=== PATIENT | male | born 1965 | race American Indian/Alaskan Native ===

== ENCOUNTER 2022-04-14 11:45 | Inpatient (IN) | payer SELFPAY ==
--- NOTE | 2022-04-14 12:05 | Consultation ---
History of Present Illness - Reason for Consult Consult date: 04/14/22 - History of Present Illness [facility] Consult Note # Demographics Consult Type: Acute Stroke Level 1 (0-4.5 hrs) Patient Location: Emergency Room First Name: manuel Last Name: radha Date of : 08/31/1961 Age: 60 Gender: Male Facility: [facility] Time of Initial Page (): 04/14/2022, 11:44 Time of Return Call (): 04/14/2022, 11:44 # HPI History: was noted to be confused. Coworkers called EMS and he is not able to follow commands. he had episode of syncope. Last Known Normal: 945AM # Scores Time of exam and NIHSS (): 04/14/2022, 11:49 Level of Consciousness 1a: [0] = Alert; keenly responsive LOC Questions 1b: [2] = Answers neither correctly LOC Commands 1c: [0] = Performs both tasks correctly Best Gaze 2: [0] = Normal Visual 3: [0] = No visual loss Facial Palsy 4: [0] = Normal symmetrical movements Motor Arm Left 5a: [0] = No drift Motor Arm Right 5b: [0] = No drift Motor Leg Left 6a: [0] = No drift Motor Leg Right 6b: [0] = No drift Limb Ataxia 7: [0] = Absent Sensory 8: [0] = Normal Best Language 9: [0] = No aphasia Dysarthria 10: [0] = Normal Extinction and Inattention 11: [0] = No abnormality NIHSS Total: 2 # Exam Vitals: vital signs reviewed SBP: 210 DBP: 108 # H-FH-SH Past Medical History: hypertension # Data Glucose: [address] personally read by me ( Time): 04/14/2022, 12:[address]: no bleed preliminarily reviewed by me, please refer to radiology read for official reading # Assessment Impression: Altered Mental Status possibly related to HTN. Less likely stroke, as there is no facial droop, gaze preference or focal weakness. # Plan Thrombolytic/Intervention: NOT IV Thrombolysis or IA Intervention candidate Thrombolytic Exclusion: other (see below) likely not stroke Intraarterial Exclusion: clinically not consistent with stroke Target Blood Pressure: SBP < 160 SBP > 120 Labs: Ammonia B12 comprehensive metabolic panel ESR liver function tests TSH urine drug screen ua Imaging: (urgency: STAT): CT Angiogram Head and CT Angiogram Neck AND call back with results if abnormal Imaging: (urgency: routine): MRI Brain without contrast Other: If patient has any neurological deterioration please call me back immediately telemetry monitoring I have discussed my recommendations with the referring provider # Demographics First Name: manuel Last Name: radha Facility: [facility] Medications and Allergies Allergies Allergy/AdvReac Type Severity Reaction Status Date / Time No Known Allergies Allergy Verified 04/14/22 11:52 Exam - Constitutional Vitals: Temp Pulse Resp BP Pulse Ox 83 18 148/98 96 04/14/22 11:48 04/14/22 11:48 04/14/22 11:48 04/14/22 11:48
--- NOTE | 2022-04-14 12:16 | Emergency Department Report ---
ED Neuro Deficit HPI - General Chief Complaint: Neuro Symptoms/Deficit Stated Complaint: STROKE Time Seen by Provider: 04/14/22 11:54 Source: patient, EMS Mode of arrival: Stretcher Limitations: No Limitations - History of Present Illness Initial Comments: 56-year-old -[place] male with a history of hypertension this morning went to work, was noted to be altered and slightly confused. Subsequently patient became more more confused and had a syncopal event. Patient admits now that he has a headache. No report of any fever chills cough or chest pain -: Sudden Location: speech, dysarthria Presenting Symptoms: Present: Altered Mental Status Place: work Severity: moderate Quality: intermittant Improves With: none, time On Anticoagulants: No Context: sudden onset Associated Symptoms: confusion Treatments Prior to Arrival: none - Related Data Allergies/Adverse Reactions: Allergies Allergy/AdvReac Type Severity Reaction Status Date / Time No Known Allergies Allergy Verified 04/14/22 11:52 ED Review of Systems ROS: Stated complaint: STROKE Other details as noted in HPI Constitutional: no symptoms reported Eyes: as per HPI ENT: as per HPI Respiratory: see HPI Cardiovascular: as per HPI Endocrine: no symptoms reported Gastrointestinal: as per HPI Genitourinary: as per HPI Musculoskeletal: as per HPI Neurological: weakness, paresthesias, confusion Psychiatric: as per HPI Hematological/Lymphatic: as per HPI ED Past Medical Hx - Past Medical History Hx Hypertension: Yes - Social History Smoking Status: Former Smoker Substance Use Type: Alcohol ED Neuro Physical Exam - General Limitations: No Limitations General appearance: alert, in no apparent distress Suspected Stroke: Yes - Head Head exam: Present: atraumatic, normocephalic, normal inspection - Eye Eye exam: Present: normal appearance, PERRL, EOMI - ENT ENT exam: Present: normal exam, normal orophraynx - Neck Neck exam: Present: normal inspection - Respiratory Respiratory exam: Present: normal lung sounds bilaterally - Cardiovascular Cardiovascular Exam: Present: regular rate, normal rhythm, normal heart sounds - GI/Abdominal GI/Abdominal exam: Present: soft. Absent: distended, tenderness - Extremities Exam Extremities exam: Present: normal inspection, full ROM - Back Exam Back exam: Present: normal inspection, full ROM - Neurological Exam Neurological exam: Present: alert - NIHSS Assessment Interval: 2 hours post treatment 1a. Level of Consciousness: alert/keenly responsive 1b. LOC Questions: answers 1 question correctly 1c. LOC Commands: performs tasks correctly 2. Best Gaze: normal 3. Visual: no visual loss 4. Facial Palsy: minor paralysis 5b. Motor Arm Right: no drift 5a. Motor Arm Left: no drift 6a. Motor Leg Left: no drift 6b. Motor Leg Right: no drift 7. Limb Ataxia: absent 8. Sensory: normal 9. Best Language: mild/moderate aphasia 10. Dysarthria: mild/moderate dysarthria 11. Extinction/Inattention: no abnormality Total Score: 4 Stroke Severity: Minor Stroke - Psychiatric Psychiatric exam: Present: normal affect ED Course Vital Signs 04/14/22 04/14/22 04/14/22 11:48 11:52 12:19 Pulse Rate 83 Respiratory 18 11 L Rate Blood Pressure Blood Pressure 148/98 [Left] O2 Sat by Pulse 96 99 98 Oximetry 04/14/22 04/14/22 04/14/22 12:30 12:46 13:00 Pulse Rate 66 70 68 Respiratory 17 16 21 Rate Blood Pressure 154/95 154/95 154/95 Blood Pressure [Left] O2 Sat by Pulse 97 98 98 Oximetry 04/14/22 04/14/22 04/14/22 13:16 13:30 13:46 Pulse Rate 65 86 72 Respiratory 19 14 20 Rate Blood Pressure 154/95 154/95 175/106 Blood Pressure [Left] O2 Sat by Pulse 98 97 98 Oximetry 04/14/22 14:00 Pulse Rate 68 Respiratory 17 Rate Blood Pressure 175/106 Blood Pressure [Left] O2 Sat by Pulse 98 Oximetry - Lab Data Result diagrams: 04/14/22 12:22 04/14/22 12:22 Lab Results 04/14/22 04/14/22 04/14/22 Range/Units 12:22 12:22 12:22 WBC 4.8 (4.5-11.0) K/mm3 RBC 3.68 (3.65-5.03) M/mm3 Hgb 10.1 L (11.8-15.2) gm/dl Hct 29.6 L (35.5-45.6) % MCV 80 L (84-94) fl MCH 28 (28-32) pg MCHC 34 (32-34) % RDW 14.7 (13.2-15.2) % Plt Count 140 (140-440) K/mm3 Lymph % (Auto) 14.0 (13.4-35.0) % [place] % (Auto) 8.7 H (0.0-7.3) % Eos % (Auto) 0.7 (0.0-4.3) % Baso % (Auto) 1.0 (0.0-1.8) % Lymph # (Auto) 0.7 L (1.2-5.4) K/mm3 [place] # (Auto) 0.4 (0.0-0.8) K/mm3 Eos # (Auto) 0.0 (0.0-0.4) K/mm3 Baso # (Auto) 0.0 (0.0-0.1) K/mm3 Seg Neutrophils % 75.6 H (40.0-70.0) % Seg Neutrophils # 3.6 (1.8-7.7) K/mm3 Sodium 138 (137-145) mmol/L Potassium 3.4 L (3.6-5.0) mmol/L Chloride 102.1 (98-107) mmol/L Carbon Dioxide 23 (22-30) mmol/L Anion Gap 16 mmol/L BUN 36 H (9-20) mg/dL Creatinine 3.9 H (0.8-1.3) mg/dL Estimated GFR 19 ml/min BUN/Creatinine Ratio 9 % Glucose 99 (75-100) mg/dL Calcium 8.4 (8.4-10.2) mg/dL Total Bilirubin 0.50 (0.1-1.2) mg/dL AST 25 (5-40) units/L ALT 21 (7-56) units/L Alkaline Phosphatase 71 (35-129) units/L Total Protein 5.5 L (6.3-8.2) g/dL Albumin 3.4 L (3.9-5) g/dL Albumin/Globulin Ratio 1.6 % Plasma/Serum Alcohol < 0.01 (0-0.07) % - EKG Data EKG shows normal: sinus rhythm, intervals, QRS complexes - Thrombolytic Inclusion/Exclusion Thrombolytic Inclusion Criteria: Ischemic Stroke Onset< 3h Critical Care Time: Yes Critical care time in (mins) excluding proc time.: 61 Critical care attestation.: If time is entered above; I have spent that time in minutes in the direct care of this critically ill patient, excluding procedure time. ED Disposition Clinical Impression: CVA (cerebral vascular accident) Disposition: 09 ADMITTED INPATIENT Is pt being admited?: Yes Condition: Critical Referrals: PRIMARY CARE,MD [Primary Care Provider] - 3-5 Days
--- NOTE | 2022-04-14 12:17 | Cat Scan Report ---
CT HEAD WITHOUT CONTRAST INDICATION / CLINICAL INFORMATION: ams. TECHNIQUE: Axial imaging performed from the skull apex through the skull base without the use of cont rast. Sagittal and coronal reformatted images. All CT scans at this location are performed using CT dose reduction for ALARA by means of automated exposure control. COMPARISON: None available. FINDINGS: CEREBRAL PARENCHYMA: No acute parenchymal abnormality is detected. There are mild to moderate areas o f hypoattenuation throughout the white matter consistent with chronic microangiopathy. No chronic inf arct is detected. HEMORRHAGE: None. EXTRA-AXIAL SPACES: Normal in size and morphology for the patient's age. VENTRICULAR SYSTEM: Normal in size and morphology for the patient's age. MIDLINE SHIFT OR HERNIATION: None. CEREBELLUM / BRAINSTEM: There are focal chronic infarcts in both cerebellar hemispheres, slightly lar barrie on the right side. CALVARIUM: No significant abnormality. ORBITS: Normal as visualized. PARANASAL SINUSES / MASTOID AIR CELLS: There is mild mucosal thickening in the left maxillary sinus. The remaining sinuses and mastoid air cells are clear. SOFT TISSUES of HEAD: No significant abnormality. ADDITIONAL FINDINGS: None. IMPRESSION: No acute intracranial abnormality. Chronic microvascular ischemic changes in the white matter. Chroni c cerebellar infarcts. CODE STROKE: Time of Communication (PHARMACY CARE COORDINATOR/CDT): 1111 hours Licensed Practitioner Receiving Report: Dr. Lutz Signer Name: Binu Iniguez Jr, MD Signed: 04/14/2022 12:13 PM Workstation Name: [id number]
--- NOTE | 2022-04-14 12:47 | XRay Report ---
CHEST 1 VIEW 04/14/2022 12:29 PM INDICATION / CLINICAL INFORMATION: sob. COMPARISON: None. FINDINGS: SUPPORT DEVICES: None. HEART / MEDIASTINUM: Normal. LUNGS / PLEURA: No acute pulmonary or pleural findings. No pneumothorax. ADDITIONAL FINDINGS: No significant additional findings. IMPRESSION: 1. No acute findings. Signer Name: Abdulaziz Bocanegra MD Signed: 04/14/2022 12:43 PM Workstation Name: [email or web address]
[2022-04-14 12:48] LABS: Eosinophils % (Auto) 0.7 % (0.0-4.3); Hematocrit 29.6 % (35.5-45.6); Hemoglobin 10.1 gm/dl (11.8-15.2); Lymphocytes # (Auto) 0.7 K/mm3 (1.2-5.4); Mean Corpuscular HGB Conc 34 % (32-34); Mean Corpuscular Volume 80 fl (84-94); Monocytes # (Auto) 0.4 K/mm3 (0.0-0.8); Monocytes % (Auto) 8.7 % (0.0-7.3); Platelet Count 140 K/mm3 (140-440); Red Blood Count 3.68 M/mm3 (3.65-5.03); Red Cell Distribution Width 14.7 % (13.2-15.2)
--- NOTE | 2022-04-14 13:17 | Cat Scan Report ---
CT angio neck, CT angio head HISTORY: cva COMPARISON: None. TECHNIQUE: CTA of the neck and head is performed after IV contrast. 3-D/MIP reformats were postproces sed. Percentage stenosis is determined by direct quantitative measurements of diseased internal boucher tid artery diameter compared with normal distal internal carotid artery reference segments or by crit eria similar to NASCET where applicable. All CT scans at this location are performed using CT dose re duction for ALARA by means of automated exposure control. FINDINGS: CTA NECK: Aortic arch: No significant abnormality. Cervical vertebral arteries: No occlusion or hemodynamically significant stenosis. Common Carotid arteries: No occlusion or hemodynamically significant stenosis. Internal carotid arteries: No occlusion or hemodynamically significant stenosis. CTA HEAD: Intracranial internal carotid arteries: No occlusion or significant stenosis. Anterior cerebral arteries: Short segment focal occlusion of the left A3 segment with immediate recon stitution, image 168 of series 300. Middle cerebral arteries: No occlusion or significant stenosis. Intracranial vertebral arteries: No occlusion or significant stenosis. Basilar artery: No occlusion or significant stenosis. Posterior cerebral arteries: Multifocal moderate to high-grade stenosis of the right P1 and P2 segmen t. No significant stenosis of the left posterior cerebral artery. No aneurysm. Additional findings: None. IMPRESSION: 1. CTA NECK: No occlusion or significant stenosis of the carotid or vertebral arteries. 2. CTA HEAD: Short segment occlusion of the left A3 segment anterior cerebral artery with reconstitut ion. There is moderate to high-grade stenosis of the right posterior cerebral artery. Signer Name: Sami Diallo MD Signed: 04/14/2022 1:13 PM Workstation Name: [id number]
[2022-04-14 13:27] LABS: Albumin 3.4 g/dL (3.9-5); Calcium 8.4 mg/dL (8.4-10.2)
--- NOTE | 2022-04-14 14:44 | History and Physical Report ---
History of Present Illness Chief complaint: My speech is slurred, my face is drooping, and I might have passed out History of present illness: 56 YO Male with HTN presents ED for evaluation. Patient reports "while at work I got confused and I could not talk and I passed out". Patient states that he was in his usual state of health this morning and presented to work. Patient states that while at work he became confused and is also experienced slurred speech, right-sided facial droop, and may have passed out. EMS was notified and upon arrival the patient was found to be in distress with a new focal neurologic deficit. A code stroke was called and the patient was transported to [facility] for further care and evaluation of the aforementioned symptoms. The patient was seen and evaluated emergency department. All lab and imaging studies reviewed. Patient found to have clinical symptoms consistent with CVA. Patient mated to medical floor and initiated on CVA protocol. Patient also found to have microcytic anemia and accelerated hypertension. Patient denies fever, chills, chest pain, palpitation, productive cough, trauma, skin rash, recent contact, unilateral leg swelling, calf pain, prolonged travel/prolonged immobility, individual/family history of DVT/PE/bleeding/blood clotting disorders, known exp osure to COVID-19. No prior admission for review. No medication listed at time of admission for reconciliation. Advanced care planning conducted in ED. Past History Past Medical History: hypertension, other (See HPI) Past Surgical History: No surgical history, Other (Reviewed) Social history: single. denies: smoking, alcohol abuse, prescription drug abuse Family history: hypertension Medications and Allergies Allergies Allergy/AdvReac Type Severity Reaction Status Date / Time No Known Allergies Allergy Verified 04/14/22 11:52 Review of Systems Constitutional: no weight loss, no weight gain Ears, nose, mouth and throat: no ear discharge, no decreased hearing, no nose pain, no nasal discharge Cardiovascular: no chest pain, no palpitations, no rapid/irregular heart beat, no syncope, no lightheadedness Respiratory: no hemoptysis, no shortness of breath Gastrointestinal: no abdominal pain, no vomiting, no diarrhea, no constipation, no hematemesis Genitourinary Male: no hematuria, no flank pain, no discharge, no urinary frequency Rectal: no pain, no incontinence, no bleeding Musculoskeletal: no neck stiffness, no neck pain, no shooting arm pain, no low back pain, no shooting leg pain, no leg numbness/tingling Integumentary: no rash, no pruritis, no redness, no sores, no wounds, no boils Neurological: syncope, change in speech, motor disturbance Psychiatric: no anxiety, no memory loss, no hallucinations Endocrine: no cold intolerance, no heat intolerance, no polyphagia, no excessive thirst, no polyuria Hematologic/Lymphatic: no easy bruising, no lymphedema Allergic/Immunologic: no urticaria, no allergic rhinitis, no wheezing, no persistent infections, no anaphylaxis, no angioedema Exam - Constitutional Vitals: Temp Pulse Resp BP Pulse Ox 68 17 175/106 98 04/14/22 14:00 04/14/22 14:00 04/14/22 14:00 04/14/22 14:00 General appearance: Present: mild distress - EENT Eyes: Present: PERRL ENT: hearing intact, clear oral mucosa - Neck Neck: Present: supple, normal ROM - Respiratory Respiratory effort: normal Respiratory: bilateral: CTA - Cardiovascular Heart Sounds: Present: S1 & S2. Absent: rub, click - Extremities Extremities: pulses symmetrical, No edema Peripheral Pulses: within normal limits - Abdominal General gastrointestinal: Present: soft, non-tender, non-distended, normal bowel sounds Male genitourinary: Present: normal - Integumentary Integumentary: Present: clear, warm, dry - Musculoskeletal Musculoskeletal: left sided weakness - Psychiatric Psychiatric: appropriate mood/affect, intact judgment & insight - Neurologic Neurologic: CNII-XII intact, moves all extremities Results - Labs CBC & Chem 7: 04/14/22 12:22 04/14/22 12:22 Labs: Abnormal lab results 04/14/22 04/14/22 Range/Units 12:22 12:22 Hgb 10.1 L (11.8-15.2) gm/dl Hct 29.6 L (35.5-45.6) % MCV 80 L (84-94) fl [place] % (Auto) 8.7 H (0.0-7.3) % Lymph # (Auto) 0.7 L (1.2-5.4) K/mm3 Seg Neutrophils % 75.6 H (40.0-70.0) % Potassium 3.4 L (3.6-5.0) mmol/L BUN 36 H (9-20) mg/dL Creatinine 3.9 H (0.8-1.3) mg/dL Total Protein 5.5 L (6.3-8.2) g/dL Albumin 3.4 L (3.9-5) g/dL Assessment and Plan - Patient Problems (1) CVA (cerebral vascular accident) Current Visit: Yes Status: Acute Plan to address problem: CVA protocol: CT head, neuro check, seizure precaution, aspiration precaution, fall precautions, physical therapy consulted, inpatient therapy consulted, speech therapy consulted, dual antiplatelet therapy, carotid Doppler, echocardiogram, lipid panel, statin therapy. Telemetry neurology consulted. (2) HTN (hypertension) Current Visit: Yes Status: Acute Qualifiers: Hypertension type: primary hypertension Qualified Code(s): I10 - Essential (primary) hypertension Plan to address problem: Monitor blood pressure every shift, continue medical management. Permissive hypertension overnight. (3) Microcytic anemia Current Visit: Yes Status: Acute Plan to address problem: Patient instructed follow-up with GI as outpatient for screening colonoscopy. (4) DVT prophylaxis Current Visit: Yes Status: Acute Plan to address problem: SCDs to bilateral lower extremities while in bed (5) Advance care planning Current Visit: Yes Status: Acute Plan to address problem: Disease education data, care plan discussed, diagnosis discussed, prognosis discussed, +30 minutes. (6) Preventative health care Current Visit: Yes Status: Acute Plan to address problem: Patient counseled regarding outpatient follow-up with primary care physician for all age and risk factor appropriate screening test. Patient instructed follow- up with GI as outpatient for screening colonoscopy due to microcytic anemia. +30 minutes.
[2022-04-14] MEDS ORDERED: HYDROmorphone 0.5 MG/0.5 ML INJ IV PRN (14:46)
[2022-04-14] MEDS ORDERED: MAGNESIUM HYDROXIDE (MOM) ORAL LIQD UDC PO PRN (14:46)
[2022-04-14] MEDS ORDERED: ONDANSETRON 4 MG/2 ML INJ IV PRN (14:46)
[2022-04-14] MEDS ORDERED: oxyCODONE /ACETAMINOPHEN 5-325MG TAB PO PRN (14:46)
[2022-04-14] MEDS ORDERED: ACETAMINOPHEN 325 MG TAB PO PRN (14:46)
[2022-04-14] MEDS ORDERED: PROMETHAZINE 25 MG RECT SUPP PR PRN (14:46)
[2022-04-14] MEDS ORDERED: ALBUTEROL 2.5 MG/3 ML NEBU IH PRN (14:46)
[2022-04-14] MEDS ORDERED: METOCLOPRAMIDE 10 MG TAB PO PRN (14:46)
[2022-04-14 14:58] LABS: Amphetamine Screen,Urine Negative; Benzodiazepines Screen,Urine Negative; Cannabinoid Screen,Urine Negative; Cocaine Screen,Urine Negative; Methadone Screen,Urine Negative; Opiate Screen,Urine Negative
--- NOTE | 2022-04-14 17:33 | Vascular Lab Report ---
DUPLEX DOPPLER ULTRASOUND CAROTID, BILATERAL INDICATION / CLINICAL INFORMATION: stroke. COMPARISON: CTA neck from same date. FINDINGS: RIGHT CAROTID: - PLAQUE ESTIMATE (%): < 50% - CCA velocity: 107 cm/sec. - ICA peak systolic velocity: 82 cm/sec. - ICA/CCA PSV Ratio: 0.8 Right Vertebral Artery: Antegrade flow. LEFT CAROTID: - PLAQUE ESTIMATE (%): < 50% - CCA velocity: 93 cm/sec. - ICA peak systolic velocity: 73 cm/sec. - ICA/CCA PSV Ratio: 0.8 Left Vertebral Artery: Antegrade flow. IMPRESSION: 1. Right Internal Carotid Artery: Less than 50% diameter stenosis. 2. Left Internal Carotid Artery: Less than 50% diameter stenosis. Velocity criteria are extrapolated from diameter data as defined by the Society of Radiologists in Ul trasound Consensus Conference, Radiology 2003; 229;340-346. NO STENOSIS (NORMAL) - Plaque = none; ICA PSV < 125 cm/sec; ICA/CCA PSV Ratio < 2.0 <50% STENOSIS - Plaque < 50%; ICA PSV < 125 cm/sec; ICA/CCA PSV Ratio < 2.0 50-69% STENOSIS - Plaque > 50%; ICA PSV = 125-230 cm/sec; ICA/CCA PSV Ratio = 2.0-4.0 >70% BUT <100% STENOSIS - Plaque > 50%; ICA PSV > 230 cm/sec; ICA/CCA PSV Ratio > 4.0 NEAR OCCLUSION - Plaque = visible lumen; ICA PSV = high/low/none; ICA/CCA PSV Ratio = variable TOTAL OCCLUSION - Plaque = no lumen; ICA PSV = none; ICA/CCA PSV Ratio = N/A Signer Name: Mike Dominguez MD Signed: 04/14/2022 5:28 PM Workstation Name: [employer]legant Tablet Sales AppWILLAPA HARBOR [facility]OS[facility]ITAL-[facility]
--- NOTE | 2022-04-15 08:40 | Progress Note ---
Assessment and Plan Assessment and plan: -- Possible acute CVA (cerebral vascular accident) Patient underwent extensive CVA work-up as below CVA work-up: CT head without contrast no acute intracranial abnormality, chronic microvascular ischemic changes in the white matter chronic cerebellar infarcts MRI brain without contrast no focal mass, hemorrhage, hydrocephalus or acute isc hemia CTA head; short segment occlusion of the left A3 segment anterior cerebral artery with reconstitution there is moderate to high-grade stenosis of the right posterior cerebral artery CTA neck; no occlusion or significant stenosis of the carotid or vertebral arteries Carotid Doppler; less than 50% stenosis bilateral carotids Echocardiogram; LVEF 40 to 45%[mild decrease in systolic Moderate to severe concentric LVH function] negative bubble study for PFO Acute CVA ruled out PT, OT speech therapy evaluation recommendation noted --Toxic metabolic encephalopathy; [AMS on admission] Improved, patient is more alert and awake responding appropriately Extensive neuro work-up reviewed as mentioned above Acute CVA ruled out --Hypertensive urgency; Patient is on multiple high doses of antihypertensives at home Which were not resumed, We will resume all his home medications And as needed hydralazine, closely monitor --Acute kidney injury; present on admission Vasomotor nephropathy , gentle hydration Monitor renal function, avoid nephrotoxin Closely monitor renal function, if no improvement Consult nephrology, check renal ultrasound -- microcytic anemia; Hb 10 Closely monitor H&H, stool for occult blood Transfuse as needed, supportive care -- DVT prophylaxis SCDs subcu heparin renal dose -- Advance care planning +30 Disease education data, care plan discussed, diagnosis discussed, prognosis discussed, I discussed tests and reports and treatment plan. Patient had questions answered all within verbalized understanding -- Preventative health care Patient counseled regarding outpatient follow-up with primary care physician Advised age-appropriate screening tests to be done in time Advised to comply with medications diet and follow-up visits Patient agreed to comply We will closely monitor the patient and adjust management as needed Plan of care reviewed with the patient and his nurse 04/15; patient's extensive CVA work-up is negative. However patient has uncontrolled blood pressures Persistently high, home medications resumed and medications adjusted Patient's blood pressures improved, and clinically stable will be discharged home in 1 to 2 days . History Interval history: I have seen and examined the patient at the bedside this morning Patient's chart and medications reviewed Patient admitted with symptoms of altered mental status, syncope and slurred speech Extensive neuro work-up is in progress Patient feels slightly better Vital signs noted Hospitalist Physical - Constitutional Vitals: Temp Pulse Resp BP Pulse Ox 99.0 F 70 20 191/114 99 04/15/22 05:56 04/15/22 05:56 04/15/22 05:56 04/15/22 06:50 04/15/22 05:56 General appearance: Present: no acute distress, well-nourished - EENT Eyes: Present: PERRL, EOM intact - Neck Neck: Present: supple, normal ROM - Respiratory Respiratory effort: normal Respiratory: bilateral: diminished, negative: rales, rhonchi, wheezing - Cardiovascular Rhythm: regular Heart Sounds: Present: S1 & S2 - Extremities Extremities: no ischemia, No edema - Abdominal General gastrointestinal: soft, non-tender, non-distended - Integumentary Integumentary: Present: clear, warm - Psychiatric Psychiatric: appropriate mood/affect, cooperative - Neurologic Neurologic: CNII-XII intact, moves all extremities Results - Labs CBC & Chem 7: 04/14/22 12:22 04/15/22 10:41 Labs: Laboratory Last Values WBC 4.8 K/mm3 (4.5-11.0) 04/14/22 12:22 RBC 3.68 M/mm3 (3.65-5.03) 04/14/22 12:22 Hgb 10.1 gm/dl (11.8-15.2) L 04/14/22 12:22 Hct 29.6 % (35.5-45.6) L 04/14/22 12:22 MCV 80 fl (84-94) L 04/14/22 12:22 MCH 28 pg (28-32) 04/14/22 12:22 MCHC 34 % (32-34) 04/14/22 12:22 RDW 14.7 % (13.2-15.2) 04/14/22 12:22 Plt Count 140 K/mm3 (140-440) 04/14/22 12:22 Lymph % (Auto) 14.0 % (13.4-35.0) 04/14/22 12:22 [place] % (Auto) 8.7 % (0.0-7.3) H 04/14/22 12:22 Eos % (Auto) 0.7 % (0.0-4.3) 04/14/22 12:22 Baso % (Auto) 1.0 % (0.0-1.8) 04/14/22 12:22 Lymph # (Auto) 0.7 K/mm3 (1.2-5.4) L 04/14/22 12:22 [place] # (Auto) 0.4 K/mm3 (0.0-0.8) 04/14/22 12:22 Eos # (Auto) 0.0 K/mm3 (0.0-0.4) 04/14/22 12:22 Baso # (Auto) 0.0 K/mm3 (0.0-0.1) 04/14/22 12:22 Seg Neutrophils % 75.6 % (40.0-70.0) H 04/14/22 12:22 Seg Neutrophils # 3.6 K/mm3 (1.8-7.7) 04/14/22 12:22 Sodium 138 mmol/L (137-145) 04/14/22 12:22 Potassium 3.4 mmol/L (3.6-5.0) L 04/14/22 12:22 Chloride 102.1 mmol/L (98-107) 04/14/22 12:22 Carbon Dioxide 23 mmol/L (22-30) 04/14/22 12:22 Anion Gap 16 mmol/L 04/14/22 12:22 BUN 36 mg/dL (9-20) H 04/14/22 12:22 Creatinine 3.9 mg/dL (0.8-1.3) H 04/14/22 12:22 Estimated GFR 19 ml/min 04/14/22 12:22 BUN/Creatinine Ratio 9 % 04/14/22 12:22 Glucose 99 mg/dL (75-100) 04/14/22 12:22 Calcium 8.4 mg/dL (8.4-10.2) 04/14/22 12:22 Total Bilirubin 0.50 mg/dL (0.1-1.2) 04/14/22 12:22 AST 25 units/L (5-40) 04/14/22 12:22 ALT 21 units/L (7-56) 04/14/22 12:22 Alkaline Phosphatase 71 units/L (35-129) 04/14/22 12:22 Total Protein 5.5 g/dL (6.3-8.2) L 04/14/22 12:22 Albumin 3.4 g/dL (3.9-5) L 04/14/22 12:22 Albumin/Globulin Ratio 1.6 % 04/14/22 12:22 Urine Opiates Screen Negative 04/14/22 14:10 Urine Methadone Screen Negative 04/14/22 14:10 Ur Barbiturates Screen Negative 04/14/22 14:10 Ur Phencyclidine Scrn Negative 04/14/22 14:10 Ur Amphetamines Screen Negative 04/14/22 14:10 U Benzodiazepines Scrn Negative 04/14/22 14:10 Urine Cocaine Screen Negative 04/14/22 14:10 U Marijuana (THC) Screen Negative 04/14/22 14:10 Drugs of Abuse Note Disclamer 04/14/22 14:10 Plasma/Serum Alcohol < 0.01 % (0-0.07) 04/14/22 12:22 [place]/IV: Voiding Method Toilet Active Medications - Current Medications Current Medications: Generic Name Dose Route Start Last Admin Trade Name Freq PRN Reason Stop Dose Admin Acetaminophen 650 mg 04/14/22 14:46 Acetaminophen 325 Mg Tab PO Q4H PRN Pain, Mild (1-3) Albuterol 2.5 mg 04/14/22 14:46 Albuterol 2.5 Mg/3 Ml Nebu IH Q3HRT PRN Shortness Of Breath Aspirin 325 mg 04/15/22 10:00 Aspirin 325 Mg Tab PO QDAY [facility] Aspirin 81 mg 04/15/22 10:00 Aspirin 81 Mg Tab Chew PO QDAY [facility] Atorvastatin Calcium 40 mg 04/14/22 22:00 04/14/22 23:06 Atorvastatin 40 Mg Tab PO 40 mg QHS NITIN Administration Bisacodyl 10 mg 04/14/22 14:46 Bisacodyl 10 Mg Rect Supp [place] QDAY PRN Constipation Clopidogrel Bisulfate 75 mg 04/15/22 10:00 Clopidogrel 75 Mg Tab PO QDAY NITIN Hydromorphone HCl 0.5 mg 04/14/22 14:46 04/14/22 19:18 Hydromorphone 0.5 Mg/0.5 Ml Inj IV 0.5 mg Q23H PRN Administration Pain , Severe (7-10) Labetalol HCl 10 mg 04/15/22 06:33 04/15/22 06:50 Labetalol 20 Mg/4 Ml Inj IV 10 mg Q6H PRN Administration hypertension Magnesium Hydroxide 30 ml 04/14/22 14:46 Magnesium Hydroxide (Mom) Oral Liqd Udc PO Q4H PRN Constipation Metoclopramide HCl 10 mg 04/14/22 14:46 Metoclopramide 10 Mg Tab PO Q6H PRN Nausea And Vomiting Ondansetron HCl 4 mg 04/14/22 14:46 Ondansetron 4 Mg/2 Ml Inj IV Q8H PRN Nausea And Vomiting Oxycodone/Acetaminophen 1 tab 04/14/22 14:46 Oxycodone /Acetaminophen 5-325mg Tab PO Q16H PRN Pain, Moderate (4-6) Promethazine HCl 25 mg 04/14/22 14:46 Promethazine 25 Mg Rect Supp [place] Q6H PRN Nausea And Vomiting Sodium Chloride 10 ml 04/14/22 14:46 04/14/22 23:07 Sodium Chloride 0.9% 10 Ml Flush Syringe IV 04/24/22 23:59 10 ml PRN PRN Administration LINE FLUSH
[2022-04-15] MEDS ORDERED: ASPIRIN 325 MG TAB PO SCH (10:00)
[2022-04-15] MEDS ORDERED: METOCLOPRAMIDE 10 MG TAB PO PRN (10:00)
[2022-04-15] MEDS: ASPIRIN 81 MG TAB CHEW PO SCH (10:00)
[2022-04-15] MEDS: CLOPIDOGREL 75 MG TAB PO SCH (10:00)
[2022-04-15] MEDS: hydrALAZINE 25 MG TAB PO SCH ×2 (10:00→15:10)
--- NOTE | 2022-04-15 10:31 | Magnetic Resonance Report ---
MR brain wo con INDICATION / CLINICAL INFORMATION: 56 years Male; Acute CVA, HEADACHES. TECHNIQUE: Multiplanar, multisequence MR images of the brain were obtained. COMPARISON: CT-04/14/2022 FINDINGS: BRAIN / INTRACRANIAL CONTENTS: Old, branch PICA infarcts seen in both cerebellar hemispheres. Mild, diffuse cerebral and cerebellar atrophy. There are moderate, somewhat confluent areas of increased signal intensity on FLAIR imaging in the wh ite matter of the cerebral hemispheres, as well as the gangliocapsular regions. These are nonspecific findings and may be related to microangiopathy (hypertension, diabetes, atherosclerosis), given the patient's age. Mild pontine disease noted. Susceptibility, T2 gradient echo imaging suggests multiple foci of decreased attenuation, largely in the gangliocapsular and pontine regions. Findings may be associated with hypertensive microhemorrhage s given the distribution of these findings and the associated white matter disease seen. Please clini josh correlate with history of significant hypertension. Otherwise, no acute ischemia, acute hemorrhage, or hydrocephalus. CRANIOCERVICAL JUNCTION: No significant abnormality. VASCULAR FLOW-VOIDS: No significant abnormality. ORBITS: No significant abnormality of visualized orbits. SINUSES / MASTOIDS: Mild to moderate mucosal thickening seen in the left maxillary antrum with mucous retention cysts noted. Mild mucosal thickening noted in the ethmoids. Mild to moderately: Thickening seen in the inferior mastoids as well, left greater than right. ADDITIONAL FINDINGS: Very small lipoma seen superficial to the left frontal bone. This finding is of no clinical significance. IMPRESSION: 1. No focal mass, hemorrhage, hydrocephalus, or acute ischemia. Signer Name: Elder Pablo MD, III Signed: 04/15/2022 10:26 AM Workstation Name: [id number]
[2022-04-15 11:38] LABS: Calcium 8.7 mg/dL (8.4-10.2)
--- NOTE | 2022-04-15 11:47 | Electrocardiograph Report ---
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
[2022-04-15] MEDS: amLODIPine 10 MG TAB PO SCH (16:25)
[2022-04-15] MEDS ORDERED: NITROGLYCERIN 0.4 MG TAB SUBL SL PRN (17:19)
[2022-04-15] MEDS ORDERED: SODIUM CHLORIDE 0.9% 1000 ML 1,000 ML IV SCH (17:45)
[2022-04-15] MEDS ORDERED: cloNIDine 0.1 MG TAB PO ONE (18:00)
[2022-04-15] MEDS: hydrALAZINE 100 MG TAB PO SCH (18:40)
[2022-04-15] MEDS: carvediloL 25 MG TAB PO SCH (22:15)
[2022-04-15] MEDS: HEPARIN 5,000 UNIT/1 ML VIAL SUB-Q SCH (22:16)
[2022-04-15] MEDS: SACUBITRIL/VALSARTAN 49-51 MG TAB PO SCH (22:30)
[2022-04-16] MEDS: hydrALAZINE 100 MG TAB PO SCH ×2 (04:58→11:16)
[2022-04-16 10:32] LABS: Chol/HDL Ratio 3.5 %
--- NOTE | 2022-04-16 10:59 | Discharge Summary ---
Providers - Providers Date of Admission: 04/14/22 14:46 Date of discharge: 04/16/22 Attending physician: BOWEN PINEDA 04/14/22 14:46 Occupational Therapy Evaluate and Treat [CONS] Routine Comment: Reason For Exam: Neuro deficits Physical Therapy Evaluation and Treat [CONS] Routine Comment: Reason For Exam: Neuro deficits 04/14/22 14:47 Speech Therapy Evaluation and Treat [CONS] Routine Reason For Exam: swallow eval Primary care physician: ORTHOTIC FITTER Hospitalization Condition: Critical Hospital course: -- Possible acute CVA (cerebral vascular accident)/acute CVA ruled out Patient underwent extensive CVA work-up as below CVA work-up: CT head without contrast no acute intracranial abnormality, chronic microvascular ischemic changes in the white matter chronic cerebellar infarcts MRI brain without contrast no focal mass, hemorrhage, hydrocephalus or acute ischemia CTA head; short segment occlusion of the left A3 segment anterior cerebral artery with reconstitution there is moderate to high-grade stenosis of the right posterior cerebral artery CTA neck; no occlusion or significant stenosis of the carotid or vertebral arteries Carotid Doppler; less than 50% stenosis bilateral carotids Echocardiogram; LVEF 40 to 45%[mild decrease in systolic Moderate to severe concentric LVH function] negative bubble study for PFO Acute CVA ruled out PT, OT speech therapy evaluation recommendation noted --Toxic metabolic encephalopathy; [AMS on admission] Improved, patient is more alert and awake responding appropriately Extensive neuro work-up reviewed as mentioned above Acute CVA ruled out --Hypertensive urgency; Patient is on multiple high doses of antihypertensives at home Which were not resumed, We will resume all his home medications And as needed hydralazine, closely monitor --Acute kidney injury; present on admission Vasomotor nephropathy , gentle hydration Monitor renal function, avoid nephrotoxin Closely monitor renal function, if no improvement Consult nephrology, check renal ultrasound -- microcytic anemia; Hb 10 Closely monitor H&H, stool for occult blood Transfuse as needed, supportive care --Medical noncompliance; --Dyslipidemia - DVT prophylaxis SCDs subcu heparin renal dose Additional diagnosis --History of atrial fibrillation --Chronic anticoagulation with Eliquis[patient noncompliant] -- Advance care planning +30 Disease education data, care plan discussed, diagnosis discussed, prognosis discussed, I discussed tests and reports and treatment plan. Patient had questions answered all within verbalized understanding -- Preventative health care Patient counseled regarding outpatient follow-up with primary care physician Advised age-appropriate screening tests to be done in time Advised to comply with medications diet and follow-up visits Patient agreed to comply We will closely monitor the patient and adjust management as needed Plan of care reviewed with the patient and his nurse Patient is stable for discharge Disposition: 01 HOME / SELF CARE / HOMELESS Final Discharge Diagnosis (Prints w/discharge instructions): --Possible CVA; acute CVA ruled out[work-up is negative]. Toxic metabolic encephalopathy resolved. Hypertensive urgency/well-controlled. Acute kidney injury/vasomotor nephropathy. Macrocytic anemia Hb 10. medical noncompliance. Dyslipidemia Core Measure Documentation - Palliative Care Palliative Care/ Comfort Measures: Not Applicable - Core Measures Any of the following diagnoses?: none Exam - Constitutional Vitals: Temp Pulse Resp BP Pulse Ox 98.4 F 58 L 18 129/78 98 04/16/22 03:58 04/16/22 03:58 04/16/22 03:58 04/16/22 03:58 04/16/22 03:58 Plan Activity: advance as tolerated Diet: renal, other (Cardiac diet) Additional Instructions: Strongly advised to comply with medications, diet, follow-up visits. If you have worsening symptoms contact MD or go to the nearest emergency room as needed. You have mild kidney failure you advised to see private thermoforming machine operator in 1 week. Advised to see primary care physician within 1 week[[facility]] Follow up with: PRIMARY MD ROBIN [Primary Care Provider] - 3-5 Days SHERRI MCCULLOUGH MD [Staff Physician] - 7 Days Prescriptions: amLODIPine 10 mg PO QDAY #30 tablet hydrALAZINE [Apresoline TAB] 100 mg PO Q8H #90 tab Aspirin [Aspirin BABY CHEW TAB] 81 mg PO QDAY #30 tab.chew Amiodarone [Cordarone 200 MG TAB] 200 mg PO QDAY #30 carvediloL [Coreg] 25 mg PO BID #60 Apixaban [Eliquis] 5 mg PO BID #60 Isosorbide Dinitrate 40 mg PO Q8H #90 AtorvaSTATin [Lipitor] 40 mg PO QHS #30 Ergocalciferol (Vitamin D2) [Vitamin D2] 50,000 unit PO QWEEK #8 cap allopurinoL [Zyloprim] 100 mg PO QDAY #30
[2022-04-16] MEDS: ASPIRIN 81 MG TAB CHEW PO SCH (11:16)
[2022-04-16] MEDS: amLODIPine 10 MG TAB PO SCH (11:16)
[2022-04-16] MEDS: CLOPIDOGREL 75 MG TAB PO SCH (11:16)
[2022-04-16] MEDS: HEPARIN 5,000 UNIT/1 ML VIAL SUB-Q SCH (11:16)
[2022-04-16] MEDS: carvediloL 25 MG TAB PO SCH (11:17)
[2022-04-16] MEDS: SACUBITRIL/VALSARTAN 49-51 MG TAB PO SCH (11:55)
[2022-04-16 13:36] VITALS: BP 108/68
== END 2022-04-16 14:18 | disposition home or self-care (01) | DRG 64 ==
LOC: ED 11:45 → 3A 14:46
PROVIDERS: ADMIT Internal Medicine; ATTEND Internal Medicine
DX: I63.9 Cerebral infarction, unspecified (principal); G92.8 Other toxic encephalopathy; N17.0 Acute kidney failure with tubular necrosis; D50.9 Iron deficiency anemia, unspecified; I16.0 Hypertensive urgency; I10 Essential (primary) hypertension; Z87.891 Personal history of nicotine dependence; E78.5 Hyperlipidemia, unspecified; Z91.14 Patient's other noncompliance with medication regimen
CPT/HCPCS: 36415; 70450; 70496; 70498; 70551; 71045; 80048; 80053; 80061; 80307; 80320; 85025; 93005; 93306; 93880; 96374; 99291; G0378; J3490; C8929; G0480; J1170; J1644; Q9967